=== PATIENT | female | born 1950 | race Caucasian/White ===

== ENCOUNTER → 2019-03-24 | Outpatient (CLI) | payer MEDICARE ==
[~2019-03-24] MED LIST: REGADENOSON 0.4 MG/5 ML SYR IV ONE
--- NOTE | 2019-03-30 18:58 | Myoview Stress Test ---
DATE OF STUDY: 03/24/2019 08:49:00 Stress Test - Treadmill ONLY PROCEDURE TITLE: Rest/stress single isotope SPECT imaging with pharmacologic stress and gated SPECT imaging. DESCRIPTION OF PROCEDURE: Pharmacologic stress testing was performed with regadenoson per protocol. The heart rate was 65 beats per minute at rest and increased to 79 beats per minute during the regadenoson infusion. The resting blood pressure was 116/68 mmHg and increased to 127/64 mmHg, which is a normal response. The resting electrocardiogram demonstrated normal sinus rhythm and left ventricular hypertrophy. There were no ST-segment changes suggestive of myocardial ischemia. Myocardial perfusion imaging was performed at rest following the injection of 11 mCi of tetrofosmin. At peak pharmacologic effect, the patient was injected with 33 mCi of tetrofosmin. Gated post-stress tomographic imaging was performed. FINDINGS: The overall quality of study is fair. Left ventricular cavity is noted to be normal size on the rest and stress studies. SPECT images demonstrate a small severe perfusion defect in the anterior wall that improves with stress. Gated SPECT imaging reveals normal myocardial thickening and wall motion. Left ventricular ejection fraction was calculated to be greater than 70%. IMPRESSION: Myocardial perfusion imaging is abnormal, there is a small mild nontransmural scar in the anterior wall, cannot rule out attenuation artifact. Overall, left ventricular systolic function was normal without regional wall motion abnormalities. Tootie Alexander MD ABS/MODL /[id number]
== END ==
LOC: NM 08:36
PROVIDERS: ATTEND Internal Medicine Interventional Cardiology
DX: R07.9 Chest pain, unspecified (principal); I25.10 Atherosclerotic heart disease of native coronary artery without angina pectoris
CPT/HCPCS: 78452; 93017; A9502; J2785